=== PATIENT | female | born 1960 | race Caucasian/White ===

== ENCOUNTER 2017-09-04 15:37 | Emergency (ER) | payer MEDICAID ==
[2017-09-04 15:49] VITALS: BP 162/72
--- NOTE | 2017-09-04 16:03 | ED Physician Documentation ---
PD HPI HEENT - Stated complaint Stated Complaint: SORE THROAT/EAR PX - Chief complaint Chief Complaint: Heent - History obtained from History obtained from: Patient - History of Present Illness Timing - onset: Other (5 days of sore throat, no fevers though but over the last few days has had ear popping and pain in both ears as well. No cough. She has had strep throat before she has a specific concern about that.) Review of Systems Constitutional: denies: Fever, Chills Ears: reports: Ear pain. denies: Loss of hearing, Drainage/discharge Nose: denies: Rhinorrhea / runny nose, Congestion Throat: reports: Sore throat PD PAST MEDICAL HISTORY - Present Medications Home Medications: Ambulatory Orders Medication Instructions Recorded Confirmed Amoxicillin 500 mg PO TID #30 capsule 09/04/17 Citalopram [CeleXA] 10 mg DAILY 09/04/17 09/04/17 Glipizide 10 mg DAILY 09/04/17 09/04/17 Insulin Glargine [Lantus Solostar] 50 units DAILY 09/04/17 09/04/17 Losartan [Cozaar] 40 mg DAILY 09/04/17 09/04/17 Mometasone Furoate [Nasonex] 1 spray NS BID #1 spray.pump 09/04/17 Simvastatin 20 mg DAILY 09/04/17 09/04/17 metFORMIN [Glucophage] 500 mg BID 09/04/17 09/04/17 traZODone [Desyrel] 50 mg DAILY 09/04/17 09/04/17 - Allergies Allergies/Adverse Reactions: Allergies Allergy/AdvReac Type Severity Reaction Status Date / Time lisinopril Allergy Mild Unknown Verified 09/04/17 15:48 PD ED PE NORMAL - Vitals Vital signs reviewed: Yes - General General: Alert and oriented X 3, No acute distress - HEENT HEENT: PERRL, EOMI, Pharynx benign, Other (rom, MILD COBBLESTONING OF RETORPHARYNX BUT TONSILS ARE NL) - Neck Neck: Supple, no meningeal sign, No bony TTP - Derm Derm: Normal color, No rash - Neuro Neuro: Alert and oriented X 3 Eye Opening: Spontaneous Motor: Obeys Commands Verbal: Oriented GCS Score: 15 - Psych Psych: Normal mood, Normal affect Results - Vitals Vitals: Vital Signs - 24 hr 09/04/17 15:44 Temperature 37.1 C Heart Rate 72 Respiratory 16 Rate Blood Pressure 162/72 H O2 Saturation 98 Oxygen O2 Source Room air Departure - Departure Disposition: 01 Home, Self Care Clinical Impression: ROM (right otitis media) Qualifiers: Otitis media type: suppurative Chronicity: acute Recurrence: not specified as recurrent Spontaneous tympanic membrane rupture: without spontaneous rupture Qualified Code(s): H66.001 - Acute suppurative otitis media without spontaneous rupture of ear drum, right ear Condition: Good Record reviewed to determine appropriate education?: Yes Instructions: ED Otitis Media Acute Adult Prescriptions: Amoxicillin 500 mg PO TID #30 capsule Mometasone Furoate [Nasonex] 1 spray NS BID #1 spray.pump Comments: Your blood pressure was elevated today on check into the emergency department. This does not mean that you have hypertension, it is a common phenomenon to come to the emergency department and have elevated blood pressure. I recommend that you see your primary care physician within the week to have it rechecked when you are feeling better.
== END 2017-09-04 16:33 | disposition home or self-care (01) ==
LOC: ED 15:37
DX: H66.001 Acute suppurative otitis media without spontaneous rupture of ear drum, right ear (principal); R03.0 Elevated blood-pressure reading, without diagnosis of hypertension
CPT/HCPCS: 99283

== ENCOUNTER 2017-10-10 12:37 | Emergency (ER) | payer MEDICAID ==
--- NOTE | 2017-10-10 13:15 | XRAY Report ---
Procedure Date: 10/10/2017 Accession Number: [id number] / [id number] Procedure: XR - Chest 2 View X-Ray CPT Code: 67062 FULL RESULT: EXAM: CHEST RADIOGRAPHY EXAM DATE: 10/10/2017 12:51 PM. CLINICAL HISTORY: Soa, Bilateral LE edema. COMPARISON: None. TECHNIQUE: 2 views. FINDINGS: Lungs/Pleura: No definite localized infiltrate, consolidation, effusion, or pneumothorax. Mediastinum: Heart and mediastinal contours are unremarkable. Cardiac fat pads. Upper lobe vessels not distended. Other: Degenerative changes. IMPRESSION: No acute disease. RADIA
[2017-10-10] MEDS ORDERED: FUROSEMIDE 40 MG/4 ML VIAL IVP STA (13:20)
--- NOTE | 2017-10-10 13:22 | ED Physician Documentation ---
History of Present Illness - Stated complaint Stated Complaint: LEG SWELLING - Chief complaint Chief Complaint: Cardiac - History obtained from History obtained from: Patient, Family - History of Present Illness Timing: How many weeks ago (1) - Additonal information Additional information: 57-year-old female who has recently had tooth extraction and has been on some ibuprofen and penicillin has developed fluid retention. She has gained about 8 pounds in the past week and she has ankle swelling that does not go down overnight as it has previously. She does take some hydrochlorothiazide she has doubled up on her dose of that. She has not taken her ibuprofen this morning. She was taking 800 mg every 6 hours. PD PAST MEDICAL HISTORY - Past Medical History Endocrine/Autoimmune: Type 2 diabetes - Present Medications Home Medications: Ambulatory Orders Medication Instructions Recorded Confirmed Citalopram [CeleXA] 20 mg PO DAILY 09/04/17 09/04/17 Glipizide 10 mg PO 0730 09/04/17 09/04/17 Insulin Glargine [Lantus Solostar] 50 units SUBQ QPM 09/04/17 09/04/17 Losartan [Cozaar] 100 mg PO DAILY 09/04/17 09/04/17 Simvastatin 40 mg PO DAILY 09/04/17 09/04/17 traZODone [Desyrel] 50 mg PO QPM 09/04/17 09/04/17 Furosemide 40 mg PO DAILY #20 tablet 10/10/17 Potassium Chloride 10 meq PO DAILY #20 tablet.er 10/10/17 hydroCHLOROthiazide 25 mg PO DAILY 10/10/17 [Hydrochlorothiazide] - Allergies Allergies/Adverse Reactions: Allergies Allergy/AdvReac Type Severity Reaction Status Date / Time lisinopril Allergy Mild Unknown Verified 10/10/17 12:48 - Social History Does the pt smoke?: No Smoking Status: Never smoker PD ED PE NORMAL - Vitals Vital signs reviewed: Yes (hypertensive) - General General: Alert and oriented X 3, No acute distress, Well developed/nourished - HEENT HEENT: Atraumatic, PERRL, EOMI - Neck Neck: Supple, no meningeal sign - Cardiac Cardiac: RRR, No murmur - Respiratory Respiratory: No respiratory distress, Clear bilaterally - Abdomen Abdomen: Soft, Non tender - Back Back: No CVA TTP, No spinal TTP - Derm Derm: Normal color, Warm and dry, No rash - Extremities Extremities: No deformity, Other (pitting pedal edema bilaterally into the calf and in the hands ) - Neuro Neuro: Alert and oriented X 3, 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, No motor deficit, No sensory deficit, Normal speech Eye Opening: Spontaneous Motor: Obeys Commands Verbal: Oriented GCS Score: 15 - Psych Psych: Normal mood, Normal affect Results - Vitals Vitals: Vital Signs - 24 hr 10/10/17 10/10/17 12:45 13:30 Temperature 36.2 C L Heart Rate 64 Respiratory 18 Rate Blood Pressure 157/92 H 158/67 H O2 Saturation 95 Oxygen O2 Source Room air - EKG (time done) 1306 Rate: Rate (enter#) (62) Rhythm: NSR Ischemia: Non specific changes Compare to prior EKG: Old EKG unavailable Computer interpretation: Agree with computer - Labs Labs: Laboratory Tests 10/10/17 10/10/17 10/10/17 13:10 13:15 13:15 WBC 7.7 RBC 4.36 Hgb 13.2 Hct 40.1 MCV 91.8 MCH 30.3 MCHC 33.0 RDW 14.5 Plt Count 254 MPV 7.9 Neut # (Auto) 4.4 Lymph # (Auto) 2.8 [place] # (Auto) 0.4 Eos # (Auto) 0.1 Baso # (Auto) 0.0 Absolute Nucleated RBC 0.00 Nucleated RBC % 0.0 Sodium 136 Potassium 3.3 L Chloride 95 L Carbon Dioxide 31 Anion Gap 10.0 BUN 14 Creatinine 0.8 Estimated GFR (MDRD) 74 L Glucose 169 H Calcium 9.0 Total Bilirubin 0.7 AST 21 ALT 23 Alkaline Phosphatase 63 Troponin I B-Natriuretic Peptide Total Protein 7.5 Albumin 3.9 Globulin 3.6 Albumin/Globulin Ratio 1.1 Lipase 21 L Urine Color YELLOW Urine Clarity CLEAR Urine pH 7.0 Ur Specific Helm 1.020 Urine Protein NEGATIVE Urine Glucose (UA) NEGATIVE Urine Ketones NEGATIVE Urine Occult Blood NEGATIVE Urine Nitrite NEGATIVE Urine Bilirubin NEGATIVE Urine Urobilinogen 0.2 (NORMAL) Ur Leukocyte Esterase NEGATIVE Ur Microscopic Review NOT INDICATED Urine Culture Comments NOT INDICATED 10/10/17 10/10/17 13:15 13:15 WBC RBC Hgb Hct MCV MCH MCHC RDW Plt Count MPV Neut # (Auto) Lymph # (Auto) [place] # (Auto) Eos # (Auto) Baso # (Auto) Absolute Nucleated RBC Nucleated RBC % Sodium Potassium Chloride Carbon Dioxide Anion Gap BUN Creatinine Estimated GFR (MDRD) Glucose Calcium Total Bilirubin AST ALT Alkaline Phosphatase Troponin I < 0.04 B-Natriuretic Peptide 32 Total Protein Albumin Globulin Albumin/Globulin Ratio Lipase Urine Color Urine Clarity Urine pH Ur Specific Helm Urine Protein Urine Glucose (UA) Urine Ketones Urine Occult Blood Urine Nitrite Urine Bilirubin Urine Urobilinogen Ur Leukocyte Esterase Ur Microscopic Review Urine Culture Comments - Rads (name of study) 2 veiw chest Radiology: Prelim report reviewed (Impression: No acute disease.), EMP read indepedently, See rad report PD MEDICAL DECISION MAKING - Sepsis Event Vital Signs: Vital Signs - 24 hr 10/10/17 10/10/17 12:45 13:30 Temperature 36.2 C L Heart Rate 64 Respiratory 18 Rate Blood Pressure 157/92 H 158/67 H O2 Saturation 95 Oxygen O2 Source Room air Departure - Departure Disposition: 01 Home, Self Care Clinical Impression: Body fluid retention Condition: Stable Instructions: ED Edema Legs Bilateral Follow-Up: Your, doctor [Other] Prescriptions: Furosemide 40 mg PO DAILY #20 tablet Potassium Chloride 10 meq PO DAILY #20 tablet.er Comments: Today it appears you have had some fluid retention related to your regular use of ibuprofen. Discontinue the ibuprofen for now and take some Lasix daily for the next 3 days. Expect your ankles to get back to normal in this period of time. While you are taking the Lasix take the potassium as well.
[2017-10-10 13:30] LABS: BASOPHILS % (AUTO) 0.4 %; EOSINOPHILS # (AUTO) 0.1 10^3/uL (0.0-0.7); EOSINOPHILS % (AUTO) 1.8 %; HGB - HEMOGLOBIN 13.2 g/dL (12.0-16.0); LYMPHOCYTES # (AUTO) 2.8 10^3/uL (1.5-3.5); LYMPHOCYTES % (AUTO) 35.9 %; MEAN CORPUSCULAR HEMOGLOBIN 30.3 pg (27.0-31.0); MEAN CORPUSCULAR VOLUME 91.8 fL (81.0-99.0); MEAN PLATELET VOLUME 7.9 fL (7.9-10.8); MONOCYTES # (AUTO) 0.4 10^3/uL (0.0-1.0); MONOCYTES % (AUTO) 4.8 %; NEUTROPHILS # (AUTO) 4.4 10^3/uL (1.5-6.6); NEUTROPHILS % (AUTO) 57.1 %; PLT - PLATELET COUNT 254 10^3/uL (130-450); RED BLOOD COUNT 4.36 10^6/uL (4.20-5.40); RED CELL DISTRIBUTION WIDTH 14.5 % (12.0-15.0); WHITE BLOOD COUNT 7.7 x10^3/uL (4.8-10.8)
[2017-10-10 13:42] LABS: ALBUMIN 3.9 g/dL (3.2-5.5); ALBUMIN/GLOBULIN RATIO 1.1 (1.0-2.2); BILIRUBIN,TOTAL 0.7 mg/dL (0.2-1.0); CREATININE 0.8 mg/dL (0.4-1.0); TOTAL PROTEIN 7.5 g/dL (6.7-8.2)
[2017-10-10 14:31] LABS: BILIRUBIN,URINE NEGATIVE (NEGATIVE); GLUCOSE, URINE (UA) NEGATIVE (NEGATIVE); KETONES,URINE (UA) NEGATIVE (NEGATIVE); LEUKOCYTE ESTERASE, URINE NEGATIVE (NEGATIVE); NITRITE,URINE NEGATIVE (NEGATIVE); OCCULT BLOOD,URINE NEGATIVE (NEGATIVE); PROTEIN,URINE NEGATIVE (NEGATIVE); UROBILINOGEN,URINE 0.2 (NORMAL) E.U./dL (NORMAL)
[2017-10-10 14:32] LABS: CLARITY,URINE CLEAR (CLEAR)
[2017-10-10 15:18] VITALS: BP 160/76
== END 2017-10-10 15:10 | disposition home or self-care (01) ==
LOC: ED 12:37
DX: R60.0 Localized edema (principal); T39.315A Adverse effect of propionic acid derivatives, initial encounter; E11.9 Type 2 diabetes mellitus without complications; R94.31 Abnormal electrocardiogram [ECG] [EKG]; Z79.4 Long term (current) use of insulin
CPT/HCPCS: 36415; 71046; 80053; 81001; 81003; 83690; 83880; 84484; 85025; 87086; 93005; 96374; 99283